=== PATIENT | female | born 1995 | race Caucasian/White ===

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

== ENCOUNTER 2017-01-05 19:54 | Emergency (ER) | payer MEDICAID ==
[~2017-01-05] VITALS: Ht 152.4 cm; Wt 42.7 kg
[2017-01-05] MEDS ORDERED: KETOROLAC TROMETHAMINE 60 MG/2 ML VIAL IM ONE (21:00)
[2017-01-05 22:31] VITALS: BP 133/61
== END 2017-01-05 22:33 | disposition home or self-care (01) ==
LOC: EMS 19:55
DX: S13.4XXA Sprain of ligaments of cervical spine, initial encounter (principal); S00.33XA Contusion of nose, initial encounter; F12.90 Cannabis use, unspecified, uncomplicated; V49.9XXA Car occupant (driver) (passenger) injured in unspecified traffic accident, initial encounter; Y93.89 Activity, other specified; Y92.89 Other specified places as the place of occurrence of the external cause; Y99.8 Other external cause status
CPT/HCPCS: 72040; 96372; 99284; J1885